=== PATIENT | female | born 1950 | race Caucasian/White ===

== ENCOUNTER → 2018-07-30 07:54 | Outpatient (CLI) | payer MEDICARE, SELFPAY ==
--- NOTE | 2018-07-30 07:59 | XR_ITS ---
XR foot wt bearing LT 3V HISTORY: Plantar foot pain ITS.REASON: pain ORDERING PHYSICIAN: Rhonda Sandoval DPM PATIENT AGE: 67 years COMPARISON: None FINDINGS: Mild hypertrophic changes along the dorsal and proximal aspect of the navicular. Flexion deformity of the PIP joint of the third toe. No fracture or dislocation. No lytic or blastic change. There is some cortical irregularity involving the distal aspect of the fifth metatarsal which could be due to an old injury. IMPRESSION: 1. Possible old fracture distal fifth metatarsal. 2. Flexion deformity third toe
--- NOTE | 2018-07-30 07:59 | XR_ITS ---
XR foot wt bearing RT 3V HISTORY: Foot pain ITS.REASON: pain ORDERING PHYSICIAN: Rhonda Sandoval DPM PATIENT AGE: 67 years COMPARISON: None FINDINGS: No fracture or dislocation. No lytic or blastic change. There is normal mineralization.. The joint spaces are well-preserved. No significant degenerative/arthritic changes. No erosive changes evident. There is an os cuboideum noted IMPRESSION: Negative, no acute finding
== END ==
PROVIDERS: PCP Internal Medicine; Visit Provider Podiatrist
DX: M79.672 Pain in left foot (principal); M79.671 Pain in right foot
CPT/HCPCS: 73630

== ENCOUNTER 2020-01-31 13:05 | Inpatient (IN) | payer MEDICARE, SELFPAY ==
[2020-01-31] VITALS (11 sets, daily range): BP systolic 100–130; BP diastolic 46–85; PULSE 77–92; RESP 14–21; TEMP 36.7–37.4; O2SAT 83–100; BMI 31.4; BMI 31.1
--- NOTE | 2020-01-31 13:27 | XR_ITS ---
PROCEDURE: XR CHEST 2V CLINICAL HISTORY: cough Shortness of air and cough COMPARISON: CXR CHEST(2 VIEWS-NOT PORTABLE) from 06/13/2013 CXR1 CHEST-PORTABLE from 07/03/2013 FINDINGS: The cardiomediastinal silhouette and pulmonary vascularity are within normal limits. There are atelectatic changes in the left lower lobe with possible patchy infiltrate in the right mid and lower lung zone. Upper lobes are clear No acute bony abnormalities. IMPRESSION: Left lower lobe atelectasis with patchy infiltrate in the right mid lower lung zone Dictated by: Moisés Waggoner MD 01/31/2020 21:53 Electronically signed by Moisés Waggoner MD in [place] 01/31/2020 21:53
--- NOTE | 2020-01-31 13:53 | HMH.EDUTC ---
[facility] [place] Condition [place] Discharge: Good Time of Disposition: 14:05 <MaldonadoLor johnson E - Last Filed: 01/31/20 13:53> Condition on Discharge: Good <Nishant Hartley - Last Filed: 01/31/20 16:17> Clinical Impression: Shortness of breath, Pneumonia Disposition: Admitted as Observation Additional Instructions: I spoke to Dr. Swanson for admission for this patient. Referrals: Get Regan [Primary Care Provider] - Medical Decision Making - Darryl Inquiry Pt receiving controlled substance: No Darryl was queried for this patient: No - Radiology Data #1 Image(s): Chest Image Reviewed: Yes I reviewed the patient's radiology image w/the ED provider <JoelSharon - Last Filed: 01/31/20 13:53> - Lab Data Result diagrams: 01/31/20 14:26 01/31/20 14:26 - CT Data CT Scan: Chest Time Received: 16:15 Preliminary Findings: Abnormal (She has developed an infiltrate and has some scattered opacities throughout the lung. She also has some mild atelectasis as well.) <Nishant Hartley - Last Filed: 01/31/20 16:17> Vital Signs: 01/31/20 13:08 01/31/20 14:15 01/31/20 14:51 Temperature 98.8 F 98.6 F Temperature Source Oral Oral Pulse Rate [Radial] 91 H 87 80 Respiratory Rate 19 16 18 Blood Pressure [Right Arm] 130/81 107/85 L 103/47 L Blood Pressure Mean [Right Arm] 97 92 65 Blood Pressure Source [Right Arm] Automatic Cuff Blood Pressure Position [Right Arm] Sitting 02 Sat by Pulse Oximetry 90 L 83 L 97 Oxygen Delivery Method Room Air Room Air Nasal Cannula Oxygen Flow Rate (LPM) 2 01/31/20 15:54 Temperature Temperature Source Pulse Rate [Radial] 85 Respiratory Rate 20 Blood Pressure [Right Arm] 104/48 L Blood Pressure Mean [Right Arm] 66 Blood Pressure Source [Right Arm] Automatic Cuff Blood Pressure Position [Right Arm] Supine 02 Sat by Pulse Oximetry 98 Oxygen Delivery Method Nasal Cannula Oxygen Flow Rate (LPM) 2 - Lab Data Lab Results 01/31/20 14:05: Chlamy pneumoniae PCR Not detected, Adenovirus (PCR) Not detected, B. pertussis DNA (PCR) Not detected, Coronavirus OC43 (PCR) Not detected, Coronavirus HKU1 (PCR) Not detected, Coronavirus 229E (PCR) Not detected, COVID-19 PCR Not detected, Coronavirus NL63 (PCR) Not detected, Human Metapneumovir PCR Not detected, Influenza A (H1) PCR Not detected, Influ A (H1N1/09) PCR Not detected, Influenza A (H3) PCR Not detected, Influenza Type A (PCR) Not detected, Influenza Type B (PCR) Not detected, M. pneumoniae (PCR) Not detected, Parainfluenza 1 (PCR) Not detected, Parainfluenza 2 (PCR) Not detected, Parainfluenza 3 (PCR) Not detected, Parainfluenza 4 (PCR) Not detected, RSV (PCR) Not detected, Entero/Rhino (PCR) Not detected 01/31/20 14:26: SARS-CoV-2 IgG Ab (Rapid) Negative, SARS-CoV-2 IgM Ab (Rapid) Negative 01/31/20 14:26: WBC 15.5 H, RBC 4.55, Hgb 13.5, Hct 42.4, MCV 93.2, MCH 29.7, MCHC 31.9, RDW 14.3, Plt Count 354, MPV 7.7, Neut % (Auto) 91.4 H, Lymph % (Auto) 2.2 L, [place] % (Auto) 4.9, Eos % (Auto) 0.3, Baso % (Auto) 1.1, Neut # (Auto) 14.2 H, Lymph # (Auto) 0.3 L, [place] # (Auto) 0.8, Eos # (Auto) 0.1, Baso # (Auto) 0.2, Total Counted 100, Neutrophils % (Manual) 93 H, Band Neutrophils % 2.0, Lymphocytes % (Manual) 1 L, Monocytes % (Manual) 3, Metamyelocytes % 1.0, Platelet Estimate Normal, RBC Morphology Normal 01/31/20 14:26: Sodium 136, Potassium 4.6, Chloride 105, Carbon Dioxide 25, Anion Gap 10.6, BUN 23 H, Creatinine 1.10 H, Estimated Creat Clear 65, Estimated GFR 49 L, Est GFR ( Amer) 59, Glucose 131 H, Calcium 8.6, Total Bilirubin 0.8, AST 32, ALT 35, Alkaline Phosphatase 60, Troponin I 0.01, C-Reactive Protein 73.5 H, Total Protein 7.0, Albumin 4.0, Globulin 3.0, Albumin/Globulin Ratio 1.3 01/31/20 14:26: Lactate 1.9 01/31/20 14:26: ESR 22 01/31/20 14:30: Specimen Source Left brachial, O2 % 2lpm nc, ABG pH 7.42, ABG pCO2 33.0 L, ABG pO2 91.7, ABG HCO3 20.9 L, ABG Total CO2 21.9 L, ABG O2 Saturation 97, ABG Base Excess -3.6 L, Moisés Test Non
--- NOTE | 2020-01-31 14:08 | CT_ITS ---
PROCEDURE: CT CHEST WO CON CLINICAL INDICATION: soa Shortness of air with cough and fatigue COMPARISON: ABDPELW/O CT ABD PELVIS W/O CONTRAST from 06/26/2013 TECHNIQUE: Axial images obtained with sagittal and coronal reformats. All CT scans at the facility use one or more dose reduction, viz: automated exposure control, ma/kV adjustment per patient size (including targeted exams where dose is matched to indication, i.e. head), or iterative reconstruction technique. FINDINGS: HEART AND MEDIASTINAL STRUCTURES: Mild cardiomegaly. No mediastinal or hilar mass or adenopathy. Scattered small nodes are present in the axilla and mediastinum. LUNGS AND PLEURAL SPACES: There are scattered areas of scarring/atelectatic changes. Scattered opacities in the right middle lobe, lingula, and lung bases posteriorly consistent with atelectasis and/or pneumonia. There is trace bilateral effusions BONY STRUCTURES: Degenerative disc disease midthoracic spine UPPER ABDOMEN: Fatty liver. Small hiatal hernia. There is thickening of the gastroesophageal junction. This is nonspecific and may only be due to nondistention. Neoplasm or esophagitis is also considered in the differential diagnosis. Barium swallow or upper endoscopy may provide further evaluation. The gallbladder is distended with cholelithiasis ADDITIONAL FINDINGS: Scattered small axillary nodes IMPRESSION: 1. Scattered opacities in the right middle lobe, lingula, and both lung bases posteriorly which may be due to atelectasis and/or pneumonia with trace bilateral effusions 2. Cholelithiasis with distended gallbladder. 3. Other non acute findings. Please see above for detail Dictated by: Moisés Waggoner MD 02/01/2020 08:17 Electronically signed by Moisés Waggoner MD in [place] 02/01/2020 08:17
--- NOTE | 2020-01-31 14:21 | ECG_ITS ---
APPROVED REPORT Exam: Resting ECG HR:84 bpm ECG Measurements Heart Rate 84 AXES GA 130 P 31 QRSd 88 QRS 22 QT 372 T 46 QTc 439 <Conclusion> Normal sinus rhythm Normal ECG Electronically signed by : Jonas Guevara, 02/04/2020 17:12:07
[2020-01-31 14:25] LABS: Adenovirus,PCR Not Detected (NotDetected); Bordetella Pertussis Not Detected (NotDetected); Chlamydophila Pneumoniae, PCR Not Detected (NotDetected); Coronavirus 19, PCR Not Detected (NotDetected); Coronavirus 229E Not Detected (NotDetected); Coronavirus NL63 Not Detected (NotDetected); Coronavirus OC43 Not Detected (NotDetected); Coronovirus HKU1,PCR Not Detected (NotDetected); Human Metapneumovirus Not Detected (NotDetected); Influenza A, PCR Not Detected (NotDetected); Influenza AH1, 2009 Not Detected (NotDetected); Influenza AH1, PCR Not Detected (NotDetected); Influenza AH3,PCR Not Detected (NotDetected); Influenza B, PCR Not Detected (NotDetected); Mycoplasma Pneumoniae, PCR Not Detected (NotDected); Parainfluenza 1, PCR Not Detected (NotDetected); Parainfluenza 2, PCR Not Detected (NotDetected); Parainfluenza 3, PCR Not Detected (NotDetected); Parainfluenza 4, PCR Not Detected (NotDetected); Respiratory Syncytial Virus Not Detected (NotDetected); Rhinovirus/Enterovirus Not Detected (NotDetected)
--- NOTE | 2020-01-31 14:29 | PC.NURSE ---
PT TO CT
--- NOTE | 2020-01-31 14:29 | PC.NURSE ---
RT IN ED WAITING FOR PT'S RETURN FROM CT SO SHE CAN DRAW ABG.
--- NOTE | 2020-01-31 14:36 | PC.NURSE ---
Pt returned from CT
[2020-01-31 14:39] LABS: Basophils # 0.2 K/mm3 (0-0.2); Basophils % 1.1 % (0.1-2.0); Eosinophils # 0.1 K/mm3 (0.0-0.4); Eosinophils % 0.3 % (0.1-12.0); Hematocrit 42.4 % (37.0-47.0); Hemoglobin 13.5 g/dL (12.2-16.2); Lymphocytes # 0.3 K/mm3 (0.7-4.5); Lymphocytes % 2.2 % (10-50); Mean Corpuscular HGB Conc 31.9 g/dL (31.8-35.4); Mean Corpuscular Hemoglobin 29.7 pg (27.0-31.2); Mean Corpuscular Volume 93.2 fl (81-99); Mean Platelet Volume 7.7 fl (7.4-10.4); Monocytes # 0.8 K/mm3 (0.1-1.0); Monocytes % 4.9 % (1.7-9.3); Neutrophils # 14.2 K/mm3 (1.8-7.8); Neutrophils % 91.4 % (37.0-80.0); Platelet Count 354 K/mm3 (142-424); Red Blood Count 4.55 M/mm3 (4.20-5.40); Red Cell Distribution Width 14.3 % (11.5-17.5); White Blood Count 15.5 K/mm3 (4.8-10.8)
[2020-01-31 14:41] LABS: MANUAL DIFFERENTIAL MANUAL DIFFERENTIAL (MANUAL DIFF)
[2020-01-31 14:47] LABS: Chloride 105 mmol/L (98-107); Potassium 4.6 mmoL/L (3.5-5.1); Sodium 136 mmol/L (136-145)
[2020-01-31 14:50] LABS: Alanine Aminotransferase 35 U/L (12-78); Albumin/Globulin Ratio 1.3 (1.1-1.8); Alkaline Phosphatase 60 U/L (38-126); Anion Gap 10.6 mEq/L (5-15); Aspartate Amino Transferase 32 U/L (14-36); Bilirubin,Total 0.8 mg/dl (0.2-1.3); Blood Urea Nitrogen 23 mg/dl (7-17); Calcium 8.6 mg/dl (8.4-10.2); Carbon Dioxide 25 mmol/L (22.0-30.0); Creatinine Clearance Estimated 65 mL/min (50-200); Estimated Glomerular Filt Rate 49 ml/min (>60); GFR (African American) 59 ML/MIN (>60); Glucose 131 mg/dl (74-100)
[2020-01-31 14:51] LABS: Lactic Acid 1.9 mmol/L (0.7-2.1)
[2020-01-31 14:54] LABS: Lymphocytes % 1 % (10-50); Monocytes % 3 % (2-9); Neutrophils % 93 % (42-76); Platelet Estimate Normal; RBC Morphology Normal; Total Cells Counted 100
[2020-01-31 14:56] LABS: C-Reactive Protein 73.5 mg/L (0-4)
[2020-01-31 14:59] LABS: ABG Base Excess -3.6 mmol/L (-2.4-2.3); ABG HCO3 20.9 mmhg (22.0-26.0); ABG Oxygen Saturation 97 % (90-100); ABG PH 7.42 mmol/L (7.35-7.45); ABG PO2 91.7 mmhg (80-100); ABG TCO2 21.9 mmhg (23-27)
[2020-01-31 15:00] LABS: Allen's Test Non Applicable; Oxygen 2lpm nc %; Source Left Brachial
[2020-01-31 15:06] LABS: Coronavirus 19 IgG Antibody Negative (Negative); Coronavirus 19 IgM Antibody Negative (Negative); Troponin I 0.01 ng/ml (0.00-0.034)
[2020-01-31 15:25] LABS: Erythrocyte Sedimentation Rate 22 mm/hr (0-30)
--- NOTE | 2020-01-31 16:02 | PC.NURSE ---
PAGING DR TRACY AT THIS TIME
--- NOTE | 2020-01-31 16:04 | PC.NURSE ---
SPEAKING WITH DR TRACY
--- NOTE | 2020-01-31 16:08 | PC.NURSE ---
CALLED CHARGE NURSE FOR BED ASSIGNMENT. PATIENT WILL BE ADMITTED TO ROOM 209. ER STAFF NOTIFIED AT THIS TIME.
--- NOTE | 2020-01-31 16:37 | PC.NURSE ---
Report given to archana on 2nd floor
--- NOTE | 2020-01-31 16:52 | PC.NURSE ---
Pt to floor via w/c at this time
[2020-02-01] VITALS (13 sets, daily range): BP systolic 114–124; BP diastolic 43–72; PULSE 78–93; RESP 17–18; TEMP 37.2–37.6; O2SAT 93–95; BMI 32.3
--- NOTE | 2020-02-01 02:04 | PC.NURSE ---
Pt has not been hospitalized since having her children. She is quite concerned about her and his health, reporting the need to get home to take care of him as he has cancer. Discussed the need for her to get well to be able to take care of him. Pt is cooperative with POC and appreciative of care. Inspiratory and expiratory rhonchi noted, pt coughs when taking a deep breath, discussed the need to deep breathe, pt agreed she would. Vital signs stable, [id number] remains in place. Independent with ADL's, instructed to call for staff, pt agreed. Presently sleeping with rhythmic respirations and no objective s/s of pain or distress noted, monitoring continues.
[2020-02-01 06:58] LABS: Basophils % 0.2 % (0.1-2.0); Eosinophils # 0.1 K/mm3 (0.0-0.4); Hematocrit 36.9 % (37.0-47.0); Lymphocytes # 1.5 K/mm3 (0.7-4.5); Lymphocytes % 11.4 % (10-50); Mean Corpuscular HGB Conc 32.1 g/dL (31.8-35.4); Mean Corpuscular Volume 93.4 fl (81-99); Mean Platelet Volume 7.8 fl (7.4-10.4); Monocytes # 0.7 K/mm3 (0.1-1.0); Monocytes % 5.4 % (1.7-9.3); Neutrophils # 10.5 K/mm3 (1.8-7.8); Platelet Count 255 K/mm3 (142-424); Red Blood Count 3.95 M/mm3 (4.20-5.40); Red Cell Distribution Width 14.4 % (11.5-17.5); White Blood Count 12.8 K/mm3 (4.8-10.8)
[2020-02-01 07:03] LABS: Chloride 105 mmol/L (98-107); Potassium 3.7 mmoL/L (3.5-5.1); Sodium 136 mmol/L (136-145)
--- NOTE | 2020-02-01 07:05 | PC.NURSE ---
No changes from previous note, pt remains safe and stable, monitoring continues.
[2020-02-01 07:06] LABS: Alanine Aminotransferase 28 U/L (12-78); Albumin Level 3.4 g/dl (3.5-5.0); Albumin/Globulin Ratio 1.3 (1.1-1.8); Alkaline Phosphatase 58 U/L (38-126); Anion Gap 9.7 mEq/L (5-15); Aspartate Amino Transferase 32 U/L (14-36); Bilirubin,Total 0.6 mg/dl (0.2-1.3); Blood Urea Nitrogen 20 mg/dl (7-17); Calcium 8.2 mg/dl (8.4-10.2); Carbon Dioxide 25 mmol/L (22.0-30.0); Creatinine Clearance Estimated 74 mL/min (50-200); Estimated Glomerular Filt Rate 71 ml/min (>60); GFR (African American) 86 ML/MIN (>60); Globulin 2.7 g/dL (1.3-3.2); Glucose 114 mg/dl (74-100); Total Protein,Serum 6.1 g/dl (6.3-8.2)
[2020-02-01 07:07] LABS: Hemoglobin 11.9 g/dL (12.2-16.2)
--- NOTE | 2020-02-01 08:45 | HMH.HP ---
*Admission Date: 01/31/20 *Chief complaint: Cough/congestion *History of present illness: History of Present Illness Provider Complaint: Patient states that her recently had lung surgery about 3 weeks ago and and she wanted tested for COVID to make sure she didnt have it and pass it on to him. States that for the last week she has continued to have worsening fatigue, feeling achy, cough, shortness of breath and over all not feeling well States that this morning she had a fever of 100.5 and she talked to her PCP and they told her she needed to come in for testing so she came States that she noticed she can feels winded when she walks - Worker's Comp Is this a Worker's Comp case?: No <Lor Maldonado E - Last Filed: 01/31/20 13:53> - History of Present Illness Provider Complaint: Patient has been in and out of hospitals over the last 3 to 4 weeks with her and really over the last 2 weeks she has felt general malaise. In the last few days she has developed a cough and today became more productive. She also states that she has had subjective fevers at home with chills and shakes here in the ED she is afebrile. She also is D satting especially with activity down into the low 80s with no oxygen support. With oxygen support on 2 L patient is now at 94. Patient denies any sore throat or headache. Patient denies any nausea vomiting diarrhea. Patient also denies any loss of taste or smell. Above notes per UTC/emergency department. Patient found to have infiltrate on chest x-ray, mild hypoxia, admitted to hospital for community-acquired pneumonia. Of note COVID-19 testing negative. [facility] History I have reviewed the patient's past medical history: Yes Medical History: Denies:: Cancer, Diabetes Mellitus Type 1, Diabetes Mellitus Type 2, MRSA *Have you ever received a pneumonia vaccine?: Yes *Have you received a flu vaccine this season?: Yes Laterality Cases: Bilateral: Tonsillectomy Amputation: No Fractures: No - *Social History Educational Level: Completed Graduate School Smoking Status: Never smoker Alcohol Intake: never Alcohol Intake Frequency:: other *Occupational Status:: retired Housing: house Household Members: spouse *Travel in the last 8 weeks: None Family Hx:: No significant family history Review of Systems - Review of Systems Review of systems:: unable to obtain, other, pertinent systems reviewed and negative unless documented below Meds Home Medications Medication Instructions Recorded Confirmed Type No Known Home Medications 01/31/20 01/31/20 History Allergies Allergy/AdvReac Type Severity Reaction Status Date / Time No Known Allergies Allergy Verified 12/03/18 11:25 Exam Vital signs and Labs for Last 24 Hours: Temp Pulse Resp BP Pulse Ox 99.7 F H 83 18 124/43 L 93 L 02/01/20 04:00 02/01/20 05:49 02/01/20 04:00 02/01/20 04:00 02/01/20 04:00 Laboratory Results - last 24 hr 01/31/20 14:05: Chlamy pneumoniae PCR Not detected, Adenovirus (PCR) Not detected, B. pertussis DNA (PCR) Not detected, Coronavirus OC43 (PCR) Not detected, Coronavirus HKU1 (PCR) Not detected, Coronavirus 229E (PCR) Not detected, COVID-19 PCR Not detected, Coronavirus NL63 (PCR) Not detected, Human Metapneumovir PCR Not detected, Influenza A (H1) PCR Not detected, Influ A (H1N1/09) PCR Not detected, Influenza A (H3) PCR Not detected, Influenza Type A (PCR) Not detected, Influenza Type B (PCR) Not detected, M. pneumoniae (PCR) Not detected, Parainfluenza 1 (PCR) Not detected, Parainfluenza 2 (PCR) Not detected, Parainfluenza 3 (PCR) Not detected, Parainfluenza 4 (PCR) Not detected, RSV (PCR) Not detected, Entero/Rhino (PCR) Not detected 01/31/20 14:26: SARS-CoV-2 IgG Ab (Rapid) Negative, SARS-CoV-2 IgM Ab (Rapid) Negative 01/31/20 14:26: WBC 15.5 H, RBC 4.55, Hgb 13.5, Hct 42.4, MCV 93.2, MCH 29.7, MCHC 31.9, RDW 14.3, Plt Count 354, MPV 7.7, Neut % (Auto) 91.4 H, Lymph % (Auto) 2.2 L, [place] % (Auto) 4.
--- NOTE | 2020-02-01 08:55 | P.CONPHA_ITS ---
[facility] Pharmacy VTE Monitoring - Patient Demographics Admission date: 02/01/20 Report Date: 02/01/20 Time: 08:55 Allergies/Adverse Reactions: Patient Allergies No Known Allergies Allergy (Verified 12/03/18 11:25) Height: 1.68 m Weight: 91.257 kg Patient Problems: Current Active Problems Shortness of breath (Acute) Pneumonia (Acute) - VTE Risk Labs: VTE Related Lab Results Hgb 11.9 g/dL (12.2-16.2) L D 02/01/20 06:45 Hct 36.9 % (37.0-47.0) L 02/01/20 06:45 Plt Count 255 K/mm3 (142-424) D 02/01/20 06:45 BUN 20 mg/dl (7-17) H 02/01/20 06:45 Creatinine 0.80 mg/dl (0.52-1.04) D 02/01/20 06:45 Estimated Creat Clear 74 mL/min (50-200) 02/01/20 06:45 Was VTE Risk Assessment Performed: Yes VTE Risk Level: Very Low Risk - Prophylaxis Types of VTE Prophylaxis: TEDS Knee High (ADAM HOSE ORDER PLACED) Location of Applied Device: Refused
[2020-02-02 04:00] VITALS: BP 132/81; PULSE 76; RESP 16; TEMP 36.7; O2SAT 94
--- NOTE | 2020-02-02 04:18 | PC.NURSE ---
Pt with productive cough, spitting into tissues, did not get to visualize sputum but pt reports I am spitting that stuff up. Lung andrews diminished in lower bases with pt coughing with deep breathing effort. Nothing acute to report this shift, pt basically unchanged from previous night filler during my care. Rested after midnight, monitoring continues.
[2020-02-02 06:00] VITALS: BMI 32.3
[2020-02-02 06:16] VITALS: PULSE 75; PULSE 79; O2SAT 92
[2020-02-02 08:00] VITALS: BP 123/57; PULSE 80; RESP 18; TEMP 36.8; O2SAT 93; O2SAT 97
--- NOTE | 2020-02-02 08:24 | HMH.DCSUM ---
General - General Admission date:: 01/31/20 Discharge date: 02/02/20 HPI HPI: History of Present Illness Provider Complaint: Patient states that her recently had lung surgery about 3 weeks ago and and she wanted tested for COVID to make sure she didnt have it and pass it on to him. States that for the last week she has continued to have worsening fatigue, feeling achy, cough, shortness of breath and over all not feeling well States that this morning she had a fever of 100.5 and she talked to her PCP and they told her she needed to come in for testing so she came States that she noticed she can feels winded when she walks - Worker's Comp Is this a Worker's Comp case?: No <Lor Maldonado E - Last Filed: 01/31/20 13:53> - History of Present Illness Provider Complaint: Patient has been in and out of hospitals over the last 3 to 4 weeks with her and really over the last 2 weeks she has felt general malaise. In the last few days she has developed a cough and today became more productive. She also states that she has had subjective fevers at home with chills and shakes here in the ED she is afebrile. She also is D satting especially with activity down into the low 80s with no oxygen support. With oxygen support on 2 L patient is now at 94. Patient denies any sore throat or headache. Patient denies any nausea vomiting diarrhea. Patient also denies any loss of taste or smell. Above notes per UTC/emergency department. Patient found to have infiltrate on chest x-ray, mild hypoxia, admitted to hospital for community-acquired pneumonia. Of note COVID-19 testing negative. Hospital Course Hospital Course: Patient was admitted to hospital, placed on azithromycin and ceftriaxone for standard community-acquired pneumonia coverage. Coronavirus 19 testing was negative. Patient did well over the next 48 hours, with diminishing oxygen requirements and improving fever curve. She tolerated antibiotics well. This morning oxygen levels were in the low 90 range even after activity. Patient wished to be discharged because she is the primary caregiver for her ill and assures us that she will be able to come back in for short-term follow-up and take antibiotics. Plan will be to prescribe antibiotics, cough syrup, follow-up in 48 hours with her primary physician. Of note patient's hydration status and pulmonary exam had improved nicely overnight. Please note patient will have an appointment in 2 days, she will need follow-up chest x-ray in 4 weeks. Please note sputum culture currently is pending. Objective Vital signs: Temp Pulse Resp BP Pulse Ox 98.2 F 80 18 123/57 L 97 02/02/20 08:00 02/02/20 08:00 02/02/20 08:00 02/02/20 08:00 02/02/20 08:00 Narrative: Patient is pleasant, alert, oriented x3. Oropharynx clear, no JVD. Heart rate regular. Abdomen soft. No edema or clubbing. Able to get up and move around the room without significant dyspnea. Lungs have better air movement. Only minimal rhonchi. Neurologic exam intact DS: Diagnosis - Discharge Diagnosis (1) Pneumonia Status: Acute Discharge Plan - Patient Discharge Instructions ACTIVITY: Continue current activity DIET: continue same diet - Follow up Plan Follow up with: Get Regan [Primary Care Provider] - 02/04/20 Disposition: Home, Self-Halfway Medications: Home Medications Medication Instructions Recorded Confirmed Type No Known Home Medications 01/31/20 01/31/20 History Azithromycin [Zithromax 250mg 250 mg PO DIRECTED #6 tab 02/02/20 Rx tab] Cefdinir [Omnicef 300mg Capsule] 300 mg PO BID #14 cap 02/02/20 Rx Promethazine/Dextromethorphan 5 ml PO Q6HP PRN #240 ml 02/02/20 Rx [Promethazine-Dm Syrup] Prescriptions/Medication Reconciliation: New Cefdinir [Omnicef 300mg Capsule] 300 mg PO BID #14 cap Azithromycin [Zithromax 250mg tab] 250 mg PO A
--- NOTE | 2020-02-02 10:27 | HMH.PHAINT ---
DISCHARGE COUNSELING-DISCUSSED DISCHARGE MEDICATIONS WITH PATIENT.
== END 2020-02-02 10:32 | disposition home or self-care (01) | DRG 195 ==
LOC: UTC 13:13 → ER 14:08 → 2ND 17:43
PROVIDERS: Nurse Practitioner; Admitting Provider Internal Medicine Adolescent Medicine; Emergency Provider Family Medicine; PCP Internal Medicine; Visit Provider Internal Medicine Adolescent Medicine
DX: J18.9 Pneumonia, unspecified organism (principal)
CPT/HCPCS: 71046; 71250; 80053; 82803; 83605; 84484; 85007; 85025; 85651; 86140; 86328; 87040; 87070; 87077; 87186; 87205; 87581; 87633; 87798; 93005; 94640; 94760; 96367; 99285; J0456

== ENCOUNTER → 2020-03-29 10:32 | Outpatient (CLI) | payer MEDICARE, SELFPAY ==
--- NOTE | 2020-03-29 10:38 | XR_ITS ---
PROCEDURE: XR CHEST 2V CLINICAL HISTORY: PNEUMONIA F/U COMPARISON: CR CXR CHEST(2 VIEWS-NOT PORTABLE) from 06/13/2013 CR CXR1 CHEST-PORTABLE from 07/03/[address] CHEST WO CON from 01/31/2020 CR XR CHEST 2V from 01/31/2020 FINDINGS: There is borderline cardiomegaly without failure. There is improvement in the bibasilar airspace disease. Lungs are now clear. No effusions. There are mild degenerative changes of the thoracic spine IMPRESSION: Borderline cardiomegaly otherwise negative. Resolving bilateral pneumonia Dictated b Moisés Waggoner MD 03/29/2020 11:08 Moisés Waggoner MD in [place] 03/29/2020 11:08
== END ==
PROVIDERS: PCP Internal Medicine; Visit Provider Internal Medicine
DX: J18.9 Pneumonia, unspecified organism (principal)
CPT/HCPCS: 71046

== ENCOUNTER → 2020-06-29 10:44 | Outpatient (CLI) | payer MEDICARE, SELFPAY ==
--- NOTE | 2020-06-29 10:52 | XR_ITS ---
PROCEDURE: XR LUMBAR SPINE MIN 4V CLINICAL INDICATION: LUMBAGO W/ L SCIATICA COMPARISON: CT ABDPELW/O CT ABD PELVIS W/O CONTRAST from 06/26/2013 FINDINGS: There is slightly accentuated lordotic curvature. The lumbosacral angle is increased although this is only accurately determined on a standing lateral projection. There are multilevel degenerate changes with disc space narrowing and prominent endplate sclerosis at the L2-3 and L4-5 levels. The changes at L4-5 were seen on the previous CT scan abdomen and pelvis 06/26/2013 but has shown slight interval progression. There is posterior osteophytic spurring L4-5 more prominent than was seen on the CT scan. The prominent narrowing and endplate sclerosis at L2-3 was not seen on the previous study. There is no pars defect. The SI joints are normal. IMPRESSION: Multilevel degenerate disc disease, abnormally increased lumbosacral angle and both of these findings could be a cause for low back pain Dictated by: Dr. Gilberto Gregory MD 06/29/2020 11:20 Dr. Gilberto Gregory MD in [place] 06/29/2020 11:20
--- NOTE | 2020-06-29 10:53 | XR_ITS ---
PROCEDURE: XR HIP LT 2-3V W/PELVIS CLINICAL INDICATION: L HIP PAIN COMPARISON: No exams were available for comparison FINDINGS: No fracture or dislocation is evident. No significant degenerative change. No lytic or blastic change. Unremarkable soft tissues. IMPRESSION: No acute findings. Dictated by: Dr. Gilberto Gregory MD 06/29/2020 11:21 Dr. Gilberto Gregory MD in [place] 06/29/2020 11:21
== END ==
DX: M54.42 Lumbago with sciatica, left side (principal); M25.552 Pain in left hip
CPT/HCPCS: 72110; 73502

== ENCOUNTER 2020-12-30 09:00 | Outpatient (RCR) | payer MEDICARE, SELFPAY | END 2020-12-30 09:05 | disposition home or self-care (01) | LOC: PT 09:00 | PROVIDERS: PCP Internal Medicine; Visit Provider Internal Medicine | DX: M54.32 Sciatica, left side (principal); M25.552 Pain in left hip | CPT/HCPCS: 97014; 97110; 97163; 97164; G0283 ==

== ENCOUNTER 2024-01-04 07:57 | Outpatient (CLI) | payer MEDICARE, SELFPAY ==
--- NOTE | 2024-01-04 08:02 | CA_ITS ---
APPROVED REPORT EXAM: Comprehensive 2D, Doppler, and color-flow Echocardiogram [employer] Operator: Deedee Reece RVT Ht: 5 ft 6 in Wt: 209lbs BSA: 2.04 BP: 130/73 mmHg Indications: SOA TDS-PT BODY HABITUS 2D Dimensions IVSd 2.28 cm F: 0.6-1.0 LVEF (Visual) 56.30 % PWd 1.58 cm F: 0.6 - 1.0 LA Volume 52.10 mL LVDd 4.32 cm F: 3.9 - 5.3 LA Volume Index 25.54 mL/m2 (M/F) 16-34 LVDs 3.06 cm F: 2.2 - 3.5 M-Mode Dimensions LA Diam 3.60 cm (1.9-4.0) TAPSE 2.09 (<1.7) LV Diastology E Decel Time 257 (160-240 msec) E/A Ratio 0.6 Aortic Valve GI Index 1.34 cm2/m2 AoV Peak Sundar. 116.0 (50-130 cm/s) AO Peak GR. 5.40 mmHg AO Mean GR. 3.10 (<5 mmHg) AO VTI 23.3 (18-25 cm) GI (VTI) 2.81 (2.5-4.5 cm2) Mitral Valve MV E Max Sundar. 61.0 (40-130 cm/s) MV A Velocity 95.0 (40-130 cm/s) E/A Ratio 0.65 MV PHT 75.0 ms Pulmonary Valve PV Peak Velocity 75.0 (50-150 cm/s) Left Ventricle The left ventricle is normal size. The left ventricular systolic function is low normal. There is increased LV wall thickness (IVSd 1.3 cm). There is normal LV segmental wall motion. Transmitral Doppler flow pattern suggests impaired LV relaxation. LVEF is 50%. Right Ventricle The right ventricle is normal size. The right ventricular systolic function is normal. Atria The left atrium size is normal. The right atrium size is normal. The interatrial shunt is not well-visualized. Aortic Valve Aortic valve is mildly thickened. There is no aortic valvular stenosis. Trace aortic regurgitation. Mitral Valve The mitral valve leaflets are mildly thickened. No evidence of mitral valve stenosis. Trace mitral regurgitation. Tricuspid Valve The tricuspid valve leaflets are thin and pliable. Trace tricuspid regurgitation. Pulmonic Valve The pulmonary valve is normal in structure. Trace pulmonic regurgitation. Great Vessels The aortic root is normal in size. The ascending aorta is not well-visualized. The IVC is not well-visualized. Pericardium There is no pericardial effusion. Other Information Study Quality: Technically Difficult Conclusion Technically difficult study due to poor acoustic windows. Markedly increased LV wall thickness (IVSd 1.3 cm) Low normal LV systolic function (LVEF 50%). In the setting of persistent symptoms presence of symptoms and increased LV wall thickness of 1.3 cm, further evaluation for infiltrative cardiomyopathy is recommended with outpatient cardiac MRI (amyloidosis protocol). Electronically signed by : Adriana Hernández MD 01/06/2024 01:25:09
--- NOTE | 2024-01-04 08:48 | XR_ITS ---
FINAL REPORT CLINICAL HISTORY: SOB FINDINGS: Two views of the chest were obtained. The heart is enlarged. Pulmonary vascularity is within normal limits. The mediastinum is normal. No acute pulmonary abnormality is identified. There is no pneumothorax. The bony thorax is intact. IMPRESSION: No active cardiopulmonary disease. Reviewed, Interpreted and Dictated by Gerard Johnson III, MD Transcribed by Melinda Root Authenticated and [facility]
[2024-01-04] MEDS: ALBUTEROL 0.083% 2.5 MG/3 ML NEB IH (12:42)
== END 2024-01-04 23:59 | disposition home or self-care (01) ==
LOC: RT 07:58
PROVIDERS: PCP Internal Medicine; Visit Provider Internal Medicine
DX: R06.09 Other forms of dyspnea (principal)
CPT/HCPCS: 71046; 93306; 94060

== ENCOUNTER 2024-04-19 02:00 | Emergency (ER) | payer MEDICARE, SELFPAY ==
[2024-04-19 02:03] VITALS: BP 174/78; PULSE 59; RESP 20; TEMP 36.4; O2SAT 97; BMI 31.9
--- NOTE | 2024-04-19 02:09 | HMH.EDGENADL ---
Discharge Plan Disposition Patient Disposition: Home, Self-Care Condition: Good Prescriptions Prescriptions: New ondansetron HCl 4 mg tablet 4 mg PO Q8H PRN (Reason: nausea and vomiting) 5 Days Qty: 30 0RF tamsulosin 0.4 mg capsule 0.4 mg PO DAILY Qty: 30 0RF oxycodone 5 mg tablet 5 mg PO Q8H PRN (Reason: pain) Qty: 12 0RF No Action promethazine-DM 120 ML syrup 5 ml PO Q6HP PRN (Reason: Cough) Qty: 240 0RF azithromycin 250 MG tablet 250 mg PO DIRECTED Qty: 6 0RF Rx Instructions: Take two (2) tablets on day #1, then one (1) tablet day #2 thru #5 cefdinir 300 MG capsule 300 mg PO BID Qty: 14 0RF Referrals Follow up/Referrals: Get Regan MD [Primary Care Provider] - See instructions Car Benites MD [Staff Physician] - See instructions Activity Restrictions/Add. Instructions Additional Instructions/Restrictions: Please take Tylenol ibuprofen and oxycodone as needed for pain. Please take Zofran as needed for nausea vomiting. Please take the tamsulosin as it may help pass the stone. Please follow-up with your primary care provider and with urology. Please return to the emergency department if you develop any new or worsening symptoms or become concerned for your health. Clinical Impressions Clinical Impression: Hydronephrosis concurrent with and due to calculi of kidney and ureter Print Language Print Language: Trinidadian Discharge ED Provider: Laci Willard General Adult HPI General Chief complaint: PAIN Stated complaint: lower R back pain, nausea, clammy Time Seen by Provider: 04/19/24 02:09 History of Present Illness HPI narrative: 73-year-old female with no reported past medical history presents with right flank pain. She reports that started around 11 PM and has been worsening. She took pain meds at home without improvement. She also reports nausea but no vomiting. She denies any history of medical problems, is on no medications. She reports no history of kidney stones, denies any urinary symptoms recently. Denies any fever. Related Data Previous Rx's ?Medication ?Instructions ?Recorded azithromycin 250 mg tablet 250 mg PO DIRECTED #6 tabs 02/02/20 cefdinir 300 mg capsule 300 mg PO BID #14 caps 02/02/20 promethazine-DM 6.25 mg-15 mg/5 mL 5 ml PO Q6HP PRN Cough #240 mL 02/02/20 oral syrup ondansetron HCl 4 mg tablet 4 mg PO Q8H PRN nausea and 04/19/24 vomiting 5 days #30 tabs oxycodone 5 mg tablet 5 mg PO Q8H PRN pain #12 tabs 04/19/24 tamsulosin 0.4 mg capsule 0.4 mg PO DAILY #30 caps 04/19/24 Allergies Allergy/AdvReac Type Severity Reaction Status Date / Time No Known Allergies Allergy Verified 12/03/18 11:25 [facility] Disclaimer: The information contained in this section may have been updated after the patient was seen, as this information can be updated by other users. Social History Smoking Status: Never smoker alcohol intake: never current occupational status: retired Travel in the last 8 weeks: None household members: spouse housing: house ROS Obtained: Yes All systems reviewed & no additional complaints except as documented Physical Exam General General appearance: alert and in no apparent distress Head Head exam: atraumatic and normocephalic Eye Eye exam: Present normal appearance, PERRL and EOMI ENT ENT exam: Present normal oropharynx and normal external ear exam Neck Neck exam: Present normal inspection and full ROM Chest Chest inspection: Present normal inspection and symmetric chest wall rise; Absent tenderness Respiratory Respiratory exam: Present normal lung sounds bilaterally; Absent respiratory distress Cardiovascular Cardiovascular exam: Present regular rate and normal rhythm Abdominal Exam Abdominal exam: Present soft; Absent distention, tenderness or guarding Extremities Exam Extremities exam: Present normal inspection; Absent edema or joint swelling Back Exam Back exam: Present normal inspection, tenderness and CVA tenderness (R) Neurological Exam Neurological exam: Present alert and oriented X3; Absent motor sensory deficit Psychiatric Psychiatric exam: Present normal affect and normal mood Skin Skin exam: Present warm, dry and normal color Lymphatic Lymphatic Findings: no adenopathy Medical Decision Making Medical Records Medical records reviewed: Yes I reviewed the patient's medical records. Darryl Inquiry Pt receiving controlled substance: No Darryl was queried for this patient: No Vital Signs: 04/19/24 02:03 04/19/24 03:00 04/19/24 06:19 Temperature 97.5 F L 98.4 F Temperature Source Oral Oral Pulse Rate 60 61 Pulse Rate [Right Radial] 59 L Respiratory Rate 20 14 17 Blood Pressure 167/78 H 154/73 H Blood Pressure [Right Arm] 174/78 H Blood Pressure Mean 103 Blood Pressure Mean [Right Arm] 110 Blood Pressure Source Automatic Cuff Blood Pressure Source [Right Arm] Automatic Cuff Blood Pressure Position Sitting Blood Pressure Position [Right Arm] Supine 02 Sat by Pulse Oximetry 97 94 L Oxygen Delivery Method Room Air Room Air Lab Data Lab results reviewed: Yes I reviewed the patient's lab results. Lab Results 04/19/24 02:44: WBC 8.2, RBC 4.43, Hgb 13.5, Hct 43.1, MCV 97.3, MCH 30.6, MCHC 31.4 L, RDW 14.7, Plt Count 247, MPV 8.1, Neut % (Auto) 76.6, Lymph % (Auto) 18.2, [place] % (Auto) 4.4, Eos % (Auto) 0.2, Baso % (Auto) 0.5, Neut # (Auto) 6.3, Lymph # (Auto) 1.5, [place] # (Auto) 0.4, Eos # (Auto) 0.0, Baso # (Auto) 0.0 04/19/24 03:00: Sodium 137, Potassium 4.4, Chloride 110 H, Carbon Dioxide 20 L, Anion Gap 11.4, BUN 17, Creatinine 0.80, Estimated Creat Clear 69, Estimated GFR 70, Est GFR ( Amer) 85, Glucose 145 H, Calcium 8.8, Total Bilirubin 0.4, AST 35, ALT 33, Alkaline Phosphatase 77, Total Protein 6.9, Albumin 3.8, Globulin 3.1, Albumin/Globulin Ratio 1.2, Urine Color Yellow, Urine Appearance Clear, Urine pH 6.0, Ur Specific [place] 1.015, Urine Protein Negative, Urine Glucose (UA) Negative, Urine Ketones Negative, Urine Blood 1+ A, Urine Nitrate Negative, Urine Bilirubin Negative, Urine Urobilinogen 0.2, Ur Leukocyte Esterase Negative, Urine RBC 20-50, Urine WBC Occasional, Ur Squamous Epith Cells Occasional, Urine Bacteria Trace 04/19/24 04:11: Urine Color Yellow, Urine Appearance Clear, Urine pH 6.0, Ur Specific [place] 1.025, Urine Protein Negative, Urine Glucose (UA) Negative, Urine Ketones 1+, Urine Blood 2+ A, Urine Nitrate Negative, Urine Bilirubin Negative, Urine Urobilinogen 0.2, Ur Leukocyte Esterase Trace, Urine RBC 20-50, Urine WBC 3-5, Ur Squamous Epith Cells 3-5, Urine Bacteria Trace 04/19/24 02:44 04/19/24 03:00 Orders (Tests/Meds): ED MEDICATIONS Discontinued Medications Generic Name Dose Route Start Last Admin Trade Name Jaidenq PRN Reason Stop Dose Admin Acetaminophen 1,000 mg 04/19/24 02:31 04/19/24 02:58 Acetaminophen 500mg Tab PO 04/19/24 02:32 1,000 mg ONCE ONE Administration Iopamidol 75 ml 04/19/24 03:41 04/19/24 03:42 Iopamidol-370 (76%);100ml Bottle IV 04/19/24 03:42 75 ml ONCE ONE Administration Ketorolac Tromethamine 30 mg 04/19/24 02:31 04/19/24 02:59 Ketorolac 30mg/Ml Vial IV 04/19/24 02:32 30 mg ONCE ONE Administration Morphine Sulfate 4 mg 04/19/24 02:31 04/19/24 02:59 Morphine 4mg/Ml Syringe IV 04/19/24 02:32 4 mg ONCE ONE Administration Ondansetron HCl 4 mg 04/19/24 02:31 04/19/24 02:59 Ondansetron 4mg/2ml Vial IV 04/19/24 02:32 4 mg ONCE ONE Administration Sodium Chloride 10 ml 04/19/24 03:41 04/19/24 03:42 Sodium Chloride 0.9% 10ml Syr (Rad Only) IV 05/19/24 03:40 10 ml NEEDED PRN Administration Maintain IV Site ORDERS Category Date Time Status CT abdomen pelvis w con Stat Cat Scan 04/19/24 02:32 Completed CBC w/Auto Diff [Complete Blood Count Auto Diff] Stat Lab 04/19/24 02:44 Completed CMP [Comprehensive Metabolic Panel] Stat Lab 04/19/24 03:00 Completed UA [Urinalysis and Microscopic] Stat Lab 04/19/24 03:00 Completed UA [Urinalysis and Microscopic] Stat Lab 04/19/24 04:11 Completed Medical Decision Narrative: 73-year-old female without significant past medical history presents for acute onset right flank pain.. History was obtained via interactive discussion with patient, family. On arrival, patient is [afebrile, hemodynamically stable, satting appropriately, alert, oriented x4, GCS 15], moving all extremities spontaneously. Full physical exam performed and significant for right CVA tenderness. Differential includes but is not limited to renal lithiasis, pyelonephritis, cholecystitis, aortic pathology, bowel pathology. Patient was given Tylenol Toradol morphine Zofran for symptomatic management and correction of underlying abnormalities. Workup initiated including CBC CMP urinalysis CT abdomen pelvis with IV contrast. On re-evaluation, patient [remains afebrile, HD stable.] Requires some nasal cannula oxygen after morphine administration but is otherwise well. Laboratory workup independently interpreted by me and significant for no significant leukocytosis, normal renal function, no significant electrolyte derangement.. Initial urine appears contaminated with squamous, will get a cath specimen. Imaging independently interpreted by me and significant for obstructing right UPJ stone approximately 3.5 x 3.5 x 4. Patient also has a intrarenal stone on the right. Incidentally noted cholelithiasis as well. See radiology read for full review of final results. Cath urine specimen shows only occasional WBCs and only trace bacteria. Nitrate negative, leuk esterase negative. Given patient history, exam and workup, patient's presentation most likely represents obstructive ureterolithiasis. Interactive discussion had with patient regarding her presentation. She was given strict return precautions for any development of fever, systemic symptoms or signs of infection. She was discharged with prescription for oxycodone and Zofran and Flomax and instructions to follow-up with urology. Procedures Risk/Benefits of Procedure(s) Were Explained: Yes Critical Care Critical Care Time Critical Care Time: No
--- NOTE | 2024-04-19 02:32 | CT_ITS ---
PROCEDURE INFORMATION: Exam: CT Abdomen And Pelvis With Contrast Exam date and time: 04/19/2024 3:36 AM Age: 73 years old Clinical indication: Abdominal pain; Flank; Right; Additional info: R flank pain TECHNIQUE: Imaging protocol: Computed tomography of the abdomen and pelvis with contrast. Radiation optimization: All CT scans at this facility use at least one of these dose optimization techniques: automated exposure control; mA and/or kV adjustment per patient size (includes targeted exams where dose is matched to clinical indication); or iterative reconstruction. Contrast material: ISOVUE; Contrast volume: 75 ml; Contrast route: IV; COMPARISON: CR XR HIP LT 2-3V W/PELVIS 06/29/2020 11:01 AM FINDINGS: Liver: The liver is diffusely low in attenuation. Gallbladder and biliary ducts: A dependent stone is seen in the gallbladder. Pancreas: Normal. No ductal dilation. Spleen: Normal. No splenomegaly. Adrenal glands: Normal. No mass. Kidneys and ureters: 7 mm stone is seen in the lower pole collecting system of the right kidney. There is a 3 mm stone at the right UPJ with mild right-sided hydronephrosis. Stomach and bowel: Unremarkable. No obstruction. No mucosal thickening. Appendix: No evidence of appendicitis. Intraperitoneal space: Unremarkable. No free air. No significant fluid collection. Vasculature: Unremarkable. No abdominal aortic aneurysm. Lymph nodes: Unremarkable. No enlarged lymph nodes. Urinary bladder: Unremarkable as visualized. Reproductive: Unremarkable as visualized. Bones/joints: Unremarkable. No acute fracture. Soft tissues: Unremarkable. IMPRESSION: 3 mm stone at the right UPJ with mild right-sided hydronephrosis. Some mild right-sided periureteral edema is noted. Larger non-obstructing stone in the right renal collecting system measuring 7 mm. Cholelithiasis without acute cholecystitis.
[2024-04-19] MEDS: ACETAMINOPHEN 500MG TAB 1000 MG PO (02:58)
[2024-04-19] MEDS: MORPHINE 4MG/ML SYRINGE 4 MG IV (02:59)
[2024-04-19] MEDS: KETOROLAC 30MG/ML VIAL 30 MG IV (02:59)
[2024-04-19] MEDS: ONDANSETRON 4MG/2ML VIAL 4 MG IV (02:59)
[2024-04-19 03:00] VITALS: BP 167/78; PULSE 60; RESP 14; O2SAT 94
[2024-04-19 03:05] LABS: Basophils % 0.5 % (0.1-2.0); Eosinophils % 0.2 % (0.1-12.0); Hematocrit 43.1 % (37.0-47.0); Hemoglobin 13.5 g/dL (12.2-16.2); Lymphocytes # 1.5 K/mm3 (0.7-4.5); Lymphocytes % 18.2 % (10-50); Mean Corpuscular HGB Conc 31.4 g/dL (31.8-35.4); Mean Corpuscular Hemoglobin 30.6 pg (27.0-31.2); Mean Corpuscular Volume 97.3 fl (81-99); Mean Platelet Volume 8.1 fl (7.4-10.4); Monocytes # 0.4 K/mm3 (0.1-1.0); Monocytes % 4.4 % (1.7-9.3); Neutrophils # 6.3 K/mm3 (1.8-7.8); Neutrophils % 76.6 % (37.0-80.0); Platelet Count 247 K/mm3 (142-424); Red Blood Count 4.43 M/mm3 (4.20-5.40); Red Cell Distribution Width 14.7 % (11.5-17.5); White Blood Count 8.2 K/mm3 (4.8-10.8)
[2024-04-19 03:17] LABS: Alanine Aminotransferase 33 U/L (12-78); Albumin Level 3.8 g/dl (3.5-5.0); Albumin/Globulin Ratio 1.2 (1.1-1.8); Alkaline Phosphatase 77 U/L (38-126); Anion Gap 11.4 mEq/L (5-15); Aspartate Amino Transferase 35 U/L (14-36); Bilirubin,Total 0.4 mg/dl (0.2-1.3); Blood Urea Nitrogen 17 mg/dl (7-17); Calcium 8.8 mg/dl (8.4-10.2); Carbon Dioxide 20 mmol/L (22.0-30.0); Chloride 110 mmol/L (98-107); Creatinine Clearance Estimated 69 mL/min (50-200); Estimated Glomerular Filt Rate 70 ml/min (>60); GFR (African American) 85 ML/MIN (>60); Globulin 3.1 g/dL (1.3-3.2); Glucose 145 mg/dl (74-100); Potassium 4.4 mmoL/L (3.5-5.1); Sodium 137 mmol/L (136-145); Total Protein,Serum 6.9 g/dl (6.3-8.2)
[2024-04-19] MEDS: SODIUM CHLORIDE 0.9% 10ML SYR (RAD ONLY) 10 ML IV (03:42)
[2024-04-19] MEDS: IOPAMIDOL-370 (76%);100ML BOTTLE 75 ML IV (03:42)
[2024-04-19 04:14] LABS: Microscopic, Urine URINE MICROSCOPIC (MICROSCOPIC)
[2024-04-19 04:19] LABS: Appearance,Urine CLEAR (Clear); Bilirubin,Urine Negative (Negative); Blood, Urine 2+ (Negative); Color,Urine YELLOW (Yellow); Glucose,Urine (UA) Negative (Negative); Ketones,Urine 1+ (Negative); Leukocyte Esterase,Urine TRACE (Negative); Nitrate,Urine Negative (Negative); Protein,Urine Negative (Negative); Specific Gravity, Urine 1.025 (1.005-1.030); Urobilinogen,Urine 0.2 EU/dl (0.2)
[2024-04-19 04:52] LABS: Bacteria,Urine Trace /lpf; RBC,Urine 20-50 #/hpf (0-3)
[2024-04-19 05:34] LABS: Microscopic, Urine URINE MICROSCOPIC (MICROSCOPIC)
[2024-04-19 05:36] LABS: Appearance,Urine CLEAR (Clear); Bilirubin,Urine Negative (Negative); Blood, Urine 1+ (Negative); Color,Urine YELLOW (Yellow); Glucose,Urine (UA) Negative (Negative); Ketones,Urine Negative (Negative); Leukocyte Esterase,Urine Negative (Negative); Nitrate,Urine Negative (Negative); Protein,Urine Negative (Negative); Specific Gravity, Urine 1.015 (1.005-1.030); Urobilinogen,Urine 0.2 EU/dl (0.2)
[2024-04-19 05:51] LABS: Bacteria,Urine Trace /lpf; RBC,Urine 20-50 #/hpf (0-3); Squamous Epithelial Cell,Urine Occasional #/hpf (0-5); WBC,Urine Occasional #/hpf (0-3)
[2024-04-19 06:19] VITALS: BP 154/73; PULSE 61; RESP 17; TEMP 36.9; O2SAT 97
== END 2024-04-19 06:21 | disposition home or self-care (01) ==
PROVIDERS: Emergency Provider Emergency Medicine; PCP Internal Medicine
DX: N13.2 Hydronephrosis with renal and ureteral calculous obstruction (principal); M54.50 Low back pain, unspecified; R11.0 Nausea; K80.80 Other cholelithiasis without obstruction
CPT/HCPCS: 74177; 80053; 81001; 85025; 96374; 96375; 99285; J1885; J2270; J2405; Q9967

== ENCOUNTER 2025-06-11 15:30 | Outpatient (CLI) | payer MEDICARE, SELFPAY ==
[2025-06-11 16:56] LABS: Hematocrit 43.0 % (37.0-47.0); Hemoglobin 13.6 g/dL (12.2-16.2); Immature Granulocytes % 0.1 %; Mean Corpuscular HGB Conc 31.6 g/dL (31.8-35.4); Mean Corpuscular Hemoglobin 29.3 pg (27.0-31.2); Mean Corpuscular Volume 92.7 fl (81-99); Nucleated Red Blood Cells % 0 %; Platelet Count 299 K/mm3 (142-424); Red Blood Count 4.64 M/mm3 (4.20-5.40); Red Cell Distribution Width-SD 50.7 fL; White Blood Count 8.0 K/mm3 (4.8-10.8)
[2025-06-11 18:45] LABS: Albumin Level 3.9 g/dl (3.5-5.0); Chloride 105 mmol/L (98-107); Potassium 4.8 mmoL/L (3.5-5.1); Sodium 134 mmol/L (136-145)
[2025-06-11 18:48] LABS: Alanine Aminotransferase 31 U/L (12-78); Albumin/Globulin Ratio 1.3 (1.1-1.8); Alkaline Phosphatase 78 U/L (38-126); Anion Gap 11.8 mEq/L (5-15); Aspartate Amino Transferase 30 U/L (14-36); Bilirubin,Total 0.3 mg/dl (0.2-1.3); Blood Urea Nitrogen 20 mg/dl (7-17); Carbon Dioxide 22 mmol/L (22.0-30.0); Creatinine,Serum 0.80 mg/dl (0.52-1.04); Estimated Glomerular Filt Rate 70 ml/min (>60); GFR (African American) 84 ML/MIN (>60); Globulin 2.9 g/dL (1.3-3.2); Total Protein,Serum 6.8 g/dl (6.3-8.2)
[2025-06-11 18:49] LABS: Calcium 8.2 mg/dl (8.4-10.2); Glucose 89 mg/dl (74-100)
[2025-06-11 19:15] LABS: Thyroid Stimulating Hormone 1.80 uIU/mL (0.465-4.68)
--- OUTSIDE RECORDS SUMMARY | 2025-06-12 10:03 | XMS_ITS | Clinical Summary ---
[facility] Organization [facility] Address [address] [place] [address] Care Team Providers Care Retail Cashier Associate Name Role Phone Get Regan MD Primary Care Provider [phone] Allergies No known active allergies Medications acetaminophen (TYLENOL) 325 MG tablet Take 2 tablets by mouth Every 6 (Six) Hours As Needed for Mild Pain. Active Active Problems No known active problems Family History Medical History Relation Name Comments Heart disease Father Breast cancer Mother Relation Name Status Comments Father Mother Social History Tobacco Use Types Packs/Day Years Used Date Smoking Tobacco: Never Smokeless Tobacco: Never Tobacco Cessation:Counseling Given: Not Answered Alcohol Use Standard Drinks/Week Comments Never 0 (1 standard drink = 0.6 oz pur e alcohol) Abuse Screen Answer Date Recorded Unsafe at Home or Work/School Not on file Feels Threatened by Someone? Not on file Does Anyone Keep You from Co ntacting Others or Doint Things Outside the Home? Not on file 06/01/2023 Physical Sign of Abuse Present Not on file 1 Housing Stability Answer Date Recorded Current Living Arrangements Not on file 05/20 Potentially Unsafe Housing Conditions Not on basim e 06/01/2023 Family and Community Support Answer Juan e Recorded Help with Day-to-Day Activities Not on file 06/01/2023 Lonely or Isolated Not on file 06/01/2023 Employment Answer Date Recorded Do you want help finding or keeping work or a angela b? Not on file 06/01/2023 Disabilities Answer Date Recorded Concentrating, Remembering, or Making Decisions Difficulty Not on file 06/01/2023 Doing Errands Independently Difficulty Not on fi le 06/01/2023 Education Answer Date Recorded Help with school or training? Not on file Preferred Language Not on file 06/01/2023 Comments Unknown Sex and Gender Information Value Date Recorded Sex Assigned at Not on file Legal Sex Female 9:38 AM EDT Gender Identity Not on file Sexual Orientation Not on file Last Filed Vital Signs Vital Sign Reading Time Taken Comments Blood Pressure 142/88 03/01/2023 3:51 PM EDT Pulse - - Temperature - - Respiratory Rate - - Oxygen Saturation - - Inhaled Oxygen Concentration - - Weight 96.3 kg (212 lb 6.4 oz) 03/01/2023 3:51 P M EDT Height 165.1 cm (5' 5 ) 03/01/2023 3:51 PM EDT Body Mass Index 35.35 03/01/2023 3:51 PM EDT Plan of Treatment Health Maintenance Due Date Last Done Comments DXA SCAN 1948 TDAP/TD VACCINES (1 - Tdap) 12/07/1967 Pneumococcal Vaccine 50+ (1 of 1 - PCV) 1998 ZOSTER VACCINE (2 of 3) 09/01/2016 07/07/2016 ANNUAL WELLNESS VISIT 04/19/2022 HEPATITIS C SCREENING 04/19/2022 RSV Vaccine - Adults (1 - 1- dose 75+ series) 12/07/2023 INFLUENZA VACCINE 03/20/2025 05/23/2022, , 07/30/2020, Additional history exists COVID-19 Vaccine (5 - 2024-2 6 season) 2025 06/14/2022, 04/27/2021, 10/19/2020, Additional history exists Insurance [id number] Care Teams Retail Cashier Associate Relationship Specialty Start Date End Date Get Regan MD [address] [facility] [address] [place] [id number] PCP - General Internal Medicine 04/19/22
== END 2025-06-11 23:59 ==
LOC: LAB.DROPOF 06-12 10:00
PROVIDERS: PCP Internal Medicine; Visit Provider Internal Medicine
DX: I10 Essential (primary) hypertension (principal); R60.9 Edema, unspecified
CPT/HCPCS: 80053; 84443; 85025

== ENCOUNTER 2025-07-23 16:05 | Outpatient (CLI) | payer MEDICARE, SELFPAY ==
[2025-07-23 17:29] LABS: Anion Gap 11.2 mEq/L (5-15); Blood Urea Nitrogen 27 mg/dl (7-17); Calcium 9.8 mg/dl (8.4-10.2); Carbon Dioxide 23 mmol/L (22.0-30.0); Chloride 102 mmol/L (98-107); Creatinine,Serum 1.10 mg/dl (0.52-1.04); Estimated Glomerular Filt Rate 48 ml/min (>60); GFR (African American) 58 ML/MIN (>60); Glucose 91 mg/dl (74-100); Potassium 4.2 mmoL/L (3.5-5.1); Sodium 132 mmol/L (136-145)
== END 2025-07-23 23:59 | disposition home or self-care (01) ==
LOC: LAB.DROPOF 07-27 10:45
PROVIDERS: PCP Internal Medicine; Visit Provider Internal Medicine
DX: I10 Essential (primary) hypertension (principal); R60.9 Edema, unspecified
CPT/HCPCS: 80048